=== PATIENT | female | born 1990 | race Caucasian/White ===

== ENCOUNTER → 2017-09-19 | Outpatient (CLI) | payer OTHER ==
--- NOTE | 2017-09-19 16:38 | RAD ---
Left shoulder, 3 views, 09/19/2017: History: Shoulder pain No fracture or or dislocation is identified. No significant arthritic change is seen. IMPRESSION: No significant left shoulder abnormality is detected.
== END | disposition home or self-care (01) ==
LOC: RAD 14:57
PROVIDERS: ATTEND Family Medicine
DX: M25.512 Pain in left shoulder (principal)
CPT/HCPCS: 73030

== ENCOUNTER → 2017-10-23 | Outpatient (CLI) | payer OTHER ==
[2017-10-03 07:00] VITALS: BP 97/64
--- NOTE | 2017-10-23 11:52 | RAD ---
Examination: MRI of the left shoulder without contrast HISTORY: History of left shoulder pain COMPARISON: None available TECHNIQUE: Multiplanar, multisequence MR imaging of the left shoulder performed without contrast. FINDINGS: The long head of the biceps tendon within the bicipital groove. The attachment of the long biceps tendon to the superior labral anchor grossly appears intact. The attachment of the subscapularis tendon grossly appears intact. The attachment of the supraspinatus tendon grossly appears intact. Mild increased signal identified at the attachment of the infraspinatus tendon likely mild tendinosis. There is increased T2 signal identified at the attachment of the teres minor tendon could be subtle partial tear. However the majority of the tendon appears intact. The visualized labrum grossly appears unremarkable. The muscle bulk grossly appears unremarkable. There is mild obscuration of fat in the rotator interval. The visualized acromioclavicular joint, glenohumeral joint grossly appears unremarkable,. IMPRESSION: 1. Nonspecific mild increased T2 signal identified at the attachment of the teres minor tendon to the humerus, question subtle partial tear. Majority of the tendon is intact. 2. Mild tendinosis of the intraspinous tendon. 3. There is mild obscuration of fat in the rotator interval. Correlate for adhesive capsulitis. Electronically signed by: Jarret Rojas MD (10/23/2017 11:49 AM) [place] [id number]
== END | disposition home or self-care (01) ==
LOC: MRI 09:46
PROVIDERS: ATTEND Family Medicine
DX: G56.92 Unspecified mononeuropathy of left upper limb (principal); M25.512 Pain in left shoulder
CPT/HCPCS: 73221

== ENCOUNTER → 2018-06-02 | Outpatient (CLI) | payer OTHER | END | disposition home or self-care (01) | LOC: ECHO 10:20 | DX: R00.2 Palpitations (principal) | CPT/HCPCS: 93306 ==

== ENCOUNTER 2019-11-05 14:51 | Emergency (ER) | payer OTHER ==
[~2019-11-05] VITALS: Ht 162.6 cm; Wt 62.6 kg
[2019-11-05] MEDS ORDERED: diphenhydrAMINE 50 MG/ML VIAL IVP ONE (16:00)
[2019-11-05] MEDS ORDERED: KETOROLAC 30 MG/ML VIAL. IVP ONE (16:00)
[2019-11-05] MEDS ORDERED: PROCHLORPERAZINE 10 MG/2 ML VIAL. IV ONE (16:00)
[2019-11-05 16:07] LABS: BILIRUBIN,URINE NEGATIVE (NEG); CLARITY,URINE CLEAR; COLOR,URINE YELLOW; NITRITE,URINE NEGATIVE (NEG); PROTEIN,URINE NEGATIVE (NEG-TRACE)
[2019-11-05 16:11] LABS: BACTERIA,URINE MANY /HPF (0-FEW); SQUAMOUS EPITHELIAL CELL,UR MANY /LPF
[2019-11-05 16:12] LABS: RBC,URINE 0 /HPF (0-2)
--- NOTE | 2019-11-05 16:24 | PHYS DOC ---
Past Medical History Past Medical History: Other Additional Past Medical Histor: R MASTITIS Past Surgical History: Other Additional Past Surgical Histo: laser vein surgery Alcohol Use: Occasionally Drug Use: None Adult General Chief Complaint Chief Complaint: HEADACHE HPI HPI Patient is a 29 year old female who presents with a CT scan on Saturday and she turned around and try has been accidentally hit her in the both tripped and fell she hit the back of her head on the cement. She states after that she was nauseous and had lightheadedness and dizziness. She states that she's not sure if she lost consciousness but if she didn't was only for seconds. States all this has resolved except her headache. She has a frontal lobe headache that goes from the temporal the temporal. States she is also sore in the back of her head. 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 States she has not had any confusion and coworkers and stated that she is acting seen. She states that she was seeing spots but has not seen spots today. She states once yesterday she saw spots but it subsided very quickly. She rates her pain a 5 out of 10. She states that she took Imitrex yesterday 50 mg, ibuprofen, Excedrin and Tylenol. She last took Tylenol this morning at 11:00 and it was 1000 mg. She is not taking any blood thinners. Review of Systems Review of Systems Neurologic: headache, denies focal weakness or sensory changes [] All other systems were reviewed and found to be within normal limits, except as documented in this note. Current Medications Current Medications Current Medications Medications (Trade) Dose Ordered Sig/Dmitriy Start Time Stop Time Status Last Admin Dose Admin Diphenhydramine HCl (Benadryl) 25 mg 1X ONCE 11/05/19 16:00 11/05/19 16:09 DC 11/05/19 16:39 25 MG Ketorolac Tromethamine (Toradol 30mg Vial) 30 mg 1X ONCE 11/05/19 16:00 11/05/19 16:15 DC 11/05/19 16:38 30 MG Prochlorperazine Edisylate (Compazine) 10 mg 1X ONCE 11/05/19 16:00 11/05/19 16:09 DC 11/05/19 16:39 10 MG Allergies Allergies Allergies Coded Allergies Type Severity Reaction Last Updated Verified Penicillins Allergy Intermediate 10/02/17 Yes clindamycin Adverse Reaction Intermediate N/V 11/19/17 Yes vancomycin Adverse Reaction Intermediate 11/19/17 Yes Physical Exam Physical Exam Constitutional: Well developed, well nourished, no acute distress, non-toxic appearance. [] HENT: Normocephalic, atraumatic, bilateral external ears normal, oropharynx moist, no oral exudates, nose normal. Tenderness to back of the head. [] Eyes: PERRLA, EOMI, conjunctiva normal, no discharge. [] Neck: Normal range of motion, no tenderness, supple, no stridor. [] Cardiovascular:Heart rate regular rhythm, no murmur [] Lungs & Thorax: Bilateral breath sounds clear to auscultation [] Abdomen: Bowel sounds normal, soft, no tenderness, no masses, no pulsatile masses. [] Skin: Warm, dry, no erythema, no rash. [] Back: No tenderness, no CVA tenderness. [] Extremities: No tenderness, no cyanosis, no clubbing, ROM intact, no edema. [] Neurologic: Alert and oriented X 3, normal motor function, normal sensory function, no focal deficits noted. [] Psychologic: Affect normal, judgement normal, mood normal. [] Current Patient Data Vital Signs Vital Signs Date Time Temp Pulse Resp B/P (MAP) Pulse Ox O2 Delivery O2 Flow Rate FiO2 11/05/19 15:15 97.9 86 16 129/90 (103) 100 Room Air 97.9 Lab Values Laboratory Tests Test 11/05/19 15:17 Urine Collection Type Unknown Urine Color Yellow Urine Clarity Clear Urine pH 6.0 Urine Specific Jbphh 1.025 Urine Protein Negative mg/dL (NEG-TRACE) Urine Glucose (UA) Negative mg/dL (NEG) Urine Ketones (Stick) Negative mg/dL (NEG) Urine Blood Negative (NEG) Urine Nitrite Negative (NEG) Urine Bilirubin Negative (NEG) Urine Urobilinogen Dipstick 1.0 mg/dL (0.2 mg/dL) Urine Leukocyte Esterase Small (NEG) Urine RBC 0 /HPF (0-2) Urine WBC 11-20 /HPF (0-4) Urine Squamous Epithelial Cells Many /LPF Urine Bacteria Many /HPF (0-FEW) Urine Mucus Marked /LPF Urine Test Negative (NEG) EKG EKG [] Radiology/Procedures Radiology/Procedures [] Impressions: [facility] [address] [place] [address] IMAGING REPORT Signed PATIENT: IRAM BRIGGS ACCOUNT: [id number] : 1990 LOCATION: ER AGE: 29 SEX: F EXAM STATUS: REG ER ORD. PHYSICIAN: ALISIA CAPPS APRN REASON: fall, head injury PROCEDURE: CT HEAD AND CERVICAL SPINE WO CT head without contrast: Reason for examination: Fell with injury. Axial images were obtained through the brain. No contrast was administered. Reconstruction was performed in sagittal and coronal planes. Ventricular systems are symmetric and not dilated. No midline shift is seen. There is no evidence of intracranial hemorrhage, infarct, mass or edema. No abnormalities of seen at the orbits. The paranasal sinuses show some mucosal disease bilaterally in the ethmoid air cells. Remaining paranasal sinuses are clear. Mastoid air cells are clear. No acute abnormality seen at the skull. IMPRESSION: No acute intracranial abnormality evident. Mucosal disease bilaterally in the ethmoid air cells. CT cervical spine without contrast: Helical images were obtained through the cervical spine from skull base through the thoracic apices. Reconstruction was performed in sagittal and coronal planes. No contrast was administered. C1 ring is intact. The odontoid process appears to be intact and normally centered between the lateral masses of C1. The cervical vertebral bodies are normally aligned anteriorly and posteriorly. No acute fracture or subluxation is seen. Posterior elements are intact. The intervertebral discs are maintained. Prevertebral soft tissues are normal. There is no spinal stenosis. Muscular bundles show no abnormalities. IMPRESSION: No acute abnormality evident in the cervical spine. Exposure: One or more of the following individualized dose reduction techniques were utilized for this examination: 1. Automated exposure control 2. Adjustment of the mA and/or kV according to patient size 3. Use of iterative reconstruction technique. Electronically signed by: Ivette Medrano MD (11/05/2019 5:14 PM) [facility] DICTATED and SIGNED BY: IVETTE MEDRANO MD DATE: 11/05/19 3464 Course & Med Decision Making Course & Med Decision Making Tenderness to the mid back of her head. No abrasion or bruising or bumps felt. No nasal palpation to the neck or her back. There is no bruising to her back or neck. No bruising to the face. Full range of motion of the neck. PERRLA. Denies any visual changes, nausea, vomiting, diarrhea, fever, neck stiffness, joint pain, other injuries to her body, abdominal pain, numbness or tingling, chest pain, shortness of air. She has not had any syncopal episodes. Alert and oriented. Speaks in full clear sentences. Ambulatory with a steady gait. Skin pink warm and dry. Moves all extremities equally. Lungs are clear to auscultation all lobes. Vital signs within normal limits. Patient states she is eating and drinking without patients. Patient states she is feeling better after medications given. States her headache is at a 2 or 3. Patient states she does not want anything stronger than ibuprofen she will just take ibuprofen at home. She'll follow primary care provider. Dragon Disclaimer Dragon Disclaimer This electronic medical record was generated, in whole or in part, using a voice recognition dictation system. Departure Departure Impression: Primary Impression: Headache Additional Impression: Head injury Disposition: HOME, SELF-CARE Condition: STABLE Referrals: ESTHELA GALAVIZ MD (PCP) Patient Instructions: Concussion-SportsMed, Head Injury, Adult Additional Instructions: Follow-up with primary care provider. Take 800 mg ibuprofen every 8 hours and he can also add in Tylenol if needed. Rest as much as possible. Scripts Ibuprofen (IBUPROFEN) 800 Mg Tablet 800 MG PO PRN Q8HRS PRN for PAIN, #20 TAB Prov: ALISIA CAPPS APRN 11/05/19 Problem Qualifiers Primary Impression: Headache Headache type: unspecified Headache chronicity pattern: acute headache Intractability: not intractable Qualified Codes: R51 - Headache Additional Impression: Head injury Encounter type: initial encounter Qualified Codes: S09.90XA - Unspecified injury of head, initial encounter ALISIA CAPPS [employer] Nov 05, 2019 16:24
[2019-11-05 16:37] LABS: U PREG PATIENT NEGATIVE (NEG)
--- NOTE | 2019-11-05 17:17 | RAD ---
CT head without contrast: Reason for examination: Fell with injury. Axial images were obtained through the brain. No contrast was administered. Reconstruction was performed in sagittal and coronal planes. Ventricular systems are symmetric and not dilated. No midline shift is seen. There is no evidence of intracranial hemorrhage, infarct, mass or edema. No abnormalities of seen at the orbits. The paranasal sinuses show some mucosal disease bilaterally in the ethmoid air cells. Remaining paranasal sinuses are clear. Mastoid air cells are clear. No acute abnormality seen at the skull. IMPRESSION: No acute intracranial abnormality evident. Mucosal disease bilaterally in the ethmoid air cells. CT cervical spine without contrast: Helical images were obtained through the cervical spine from skull base through the thoracic apices. Reconstruction was performed in sagittal and coronal planes. No contrast was administered. C1 ring is intact. The odontoid process appears to be intact and normally centered between the lateral masses of C1. The cervical vertebral bodies are normally aligned anteriorly and posteriorly. No acute fracture or subluxation is seen. Posterior elements are intact. The intervertebral discs are maintained. Prevertebral soft tissues are normal. There is no spinal stenosis. Muscular bundles show no abnormalities. IMPRESSION: No acute abnormality evident in the cervical spine. Exposure: One or more of the following individualized dose reduction techniques were utilized for this examination: 1. Automated exposure control 2. Adjustment of the mA and/or kV according to patient size 3. Use of iterative reconstruction technique. Electronically signed by: Ivette Beatty MD (11/05/2019 5:14 PM) [facility]
[2019-11-05] MEDS ORDERED: IBUP-1060 PO (17:51)
[2019-11-05 18:26] VITALS: BP 113/69
== END 2019-11-05 18:46 | disposition home or self-care (01) ==
LOC: ER 14:51
DX: S09.90XA Unspecified injury of head, initial encounter (principal); R42 Dizziness and giddiness; Z88.0 Allergy status to penicillin; Z88.1 Allergy status to other antibiotic agents; W01.198A Fall on same level from slipping, tripping and stumbling with subsequent striking against other object, initial encounter; Y93.89 Activity, other specified; Y92.89 Other specified places as the place of occurrence of the external cause; Y99.8 Other external cause status
CPT/HCPCS: 70450; 72125; 81001; 81025; 87086; 96374; 96375; 99285; J0780; J1200; J1885

== ENCOUNTER 2020-06-21 04:45 | Emergency (ER) | payer OTHER ==
[~2020-06-21] VITALS: Ht 162.6 cm; Wt 63.0 kg
[~2020-06-21 04:45] MED LIST: IBUP-1060 PO
[2020-06-21 04:50] VITALS: BP 133/94
--- NOTE | 2020-06-21 06:39 | PHYS DOC ---
Past Medical History Past Medical History: Other Additional Past Medical Histor: R MASTITIS Past Surgical History: Other Additional Past Surgical Histo: laser vein surgery Smoking Status: Never Smoker Alcohol Use: Occasionally Drug Use: None General Adult EDM: Chief Complaint: NECK PAIN HPI: HPI: Patient is a 29-year-old female employee of [employer] who presents with ongoing neck problems. She states that she is just been unable to get comfortable and now she starting to get some pain into her left arm. She states she has been taking Valium, gabapentin and Percocet without much relief of her symptoms. She has had steroid injections in her neck and completed a course of steroids. She does not recall any specific trauma to the area. [] Review of Systems: Review of Systems: Constitutional: Denies fever or chills. [] Eyes: Denies change in visual acuity. [] HENT: Denies nasal congestion or sore throat. [] Respiratory: Denies cough or shortness of breath. [] Cardiovascular: Denies chest pain or edema. [] GI: Denies abdominal pain, nausea, vomiting, bloody stools or diarrhea. [] : Denies dysuria. [] Musculoskeletal: Per HPI [] Integument: Denies rash. [] Neurologic: Denies headache, focal weakness or sensory changes. [] Endocrine: Denies polyuria or polydipsia. [] Lymphatic: Denies swollen glands. [] Psychiatric: Denies depression or anxiety. [] Heart Score: Risk Factors: Risk Factors: DM, Current or recent (<one month) smoker, HTN, HLP, family history of CAD, obesity. Risk Scores: Score 0 - 3: 2.5% MACE over next 6 weeks - Discharge Home Score 4 - 6: 20.3% MACE over next 6 weeks - Admit for Clinical Observation Score 7 - 10: 72.7% MACE over next 6 weeks - Early Invasive Strategies Current Medications: Current Medications Medications (Trade) Dose Ordered Sig/Dmitriy Start Time Stop Time Status Last Admin Dose Admin Ketorolac Tromethamine (Toradol Im) 60 mg 1X ONCE 06/21/20 07:00 06/21/20 07:01 Orphenadrine Citrate (Norflex) 60 mg 1X ONCE 06/21/20 07:00 06/21/20 07:01 Allergies: Allergies: Allergies Coded Allergies Type Severity Reaction Last Updated Verified Penicillins Allergy Intermediate 10/02/17 Yes clindamycin Adverse Reaction Intermediate N/V 11/19/17 Yes vancomycin Adverse Reaction Intermediate 11/19/17 Yes Physical Exam: PE: Constitutional: Well developed, well nourished, mild to moderate distress, non- toxic appearance. [] HENT: Normocephalic, atraumatic, bilateral external ears normal, oropharynx moist, no oral exudates, nose normal. [] Eyes: PERRLA, EOMI, conjunctiva normal, no discharge. [] Neck: There is no increased pain with axial compression or side bending right or left some increased pain with rotation to the right there is no midline vertebral tenderness she does have some paraspinal muscle spasm left greater than right [] [] Skin: Warm, dry, no erythema, no rash. [] Back: . No midline tenderness no paraspinal muscle spasm [] Extremities: No tenderness, no cyanosis, no clubbing, ROM intact, no edema. [] Neurologic: Alert and oriented X 3, normal motor function, normal sensory function, no focal deficits noted. [] Psychologic: Anxious l. [] EKG: EKG: [] Radiology/Procedures: Radiology/Procedures: [] Course & Med Decision Making: Course & Med Decision Making Pertinent Labs and Imaging studies reviewed. (See chart for details) [ED course: Evaluation reveals a 29-year-old female with a cervical radiculopathy. I spoke with Dr. Stanley this morning and let him know that I thought an MRI as an outpatient was the next best step. He agreed and stated that he would get this scheduled through their office. I informed the patient that she needed to call and remind the office to get it scheduled to soon as possible. Patient was also given Toradol and Norflex during her stay in the department.] Dragon Disclaimer: Dragon Disclaimer: This electronic medical record was generated, in whole or in part, using a voice recognition dictation system. Departure Departure Impression: Primary Impression: Cervical radiculopathy Disposition: 01 HOME, SELF-CARE Condition: STABLE Referrals: ESTHELA STANLEY MD (PCP) Patient Instructions: Cervical Radiculopathy Additional Instructions: I talked with Dr. Stanley this morning and let him know that you would need an outpatient MRI scan of your neck. He asked that she call their office this morning after 8 to remind them to get it scheduled. Return to the emergency department with any new or concerning symptoms Justicifation of Admission Dx: Justifications for Admission: Justification of Admission Dx: No ROSA THOMAS DO Jun 21, 2020 06:38
[2020-06-21] MEDS ORDERED: ORPHENADRINE CITRATE 60 MG/2 ML VIAL. IM ONE (07:00)
[2020-06-21] MEDS ORDERED: KETOROLAC 60 MG/2 ML VIAL. IM ONE (07:00)
== END 2020-06-21 07:00 | disposition home or self-care (01) ==
LOC: ER 04:45
DX: M54.12 Radiculopathy, cervical region (principal); Z88.0 Allergy status to penicillin; Z88.1 Allergy status to other antibiotic agents
CPT/HCPCS: 96372; 99284; J1885; J2360

== ENCOUNTER → 2020-06-22 | Outpatient (CLI) | payer OTHER ==
[2020-06-21 04:50] VITALS: BP 133/94
--- NOTE | 2020-06-22 12:38 | KCIC ---
EXAM: Cervical spine MRI without contrast. HISTORY: Cervical radiculopathy. TECHNIQUE: Multiplanar, multisequence magnetic resonance imaging of the cervical spine was performed without contrast. COMPARISON: None. FINDINGS: There is no significant listhesis. The vertebral bodies are normal in height. There is no suspicious osseous lesion. No cervical spinal cord lesion is seen. There is a tiny mucous retention cyst within the sphenoid sinus. The posterior fossa is unremarkable. At C2-C3, there is no stenosis. At C3-C4, there is a minimal disc bulge and endplate remodeling. There is no stenosis. At C4-C5, there is no stenosis. At C5-C6, there is a minimal posterior central disc protrusion. There is no stenosis. At C6-C7, there is a shallow right foraminal to extra foraminal disc protrusion and annular tear. There is minimal right foraminal stenosis. IMPRESSION: 1. Mild degenerative changes involving the cervical spine, described in detail above. 2. No acute finding or cervical spinal cord lesion. Electronically signed by: Lissa Hatfield MD (06/22/2020 12:36 PM) [facility]
== END | disposition home or self-care (01) ==
LOC: KCIC MRI 09:54
PROVIDERS: ATTEND Family Medicine
DX: M47.22 Other spondylosis with radiculopathy, cervical region (principal)
CPT/HCPCS: 72141

== ENCOUNTER 2020-08-01 16:20 | Emergency (ER) | payer OTHER ==
[~2020-08-01] VITALS: Ht 162.6 cm; Wt 64.0 kg
[2020-08-01] MEDS ORDERED: ONDANSETRON PF 4 MG/2 ML VIAL. ONE (16:48)
[2020-08-01] MEDS ORDERED: IV NORMAL SALINE 1000ML BAG 1,000 ML IV ONE (17:00)
[2020-08-01] MEDS ORDERED: ONDANSETRON PF 4 MG/2 ML VIAL. IVP ONE (17:00)
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
[2020-08-01] MEDS ORDERED: IOHEXOL 300 MG/ML 100ML VIAL. IV ONE (17:30)
[2020-08-01] MEDS ORDERED: CONTRAST GIVEN. MC PRN (17:30)
[2020-08-01] MEDS ORDERED: DIPH,PERTUSS(ACELL),TET VAC/PF 0.5 ML SYRINGE. VAX IM ONE (17:30)
--- NOTE | 2020-08-01 17:50 | RAD ---
EXAM: CT Chest, Abdomen, and Pelvis with IV contrast INDICATION: Reason: crush injury / Spl. Instructions: omni 300 inj 75 mls / History: TECHNIQUE: Multi-detector row CT images were acquired from the thoracic inlet through the ischial tuberosities with the use of IV contrast. Sagittal and coronal images were acquired from the transaxial data. All CT scans performed at this facility utilize dose optimization techniques as appropriate to the exam, including the following: Automated exposure control and adjustment of the mA and/or KV according to patient size (this includes techniques or standardized protocols for targeted exams where dose is indication/reason for exam). IV CONTRAST: Administered ORAL CONTRAST: Not administered COMPARISON: None FINDINGS: CHEST: CARDIOVASCULAR: Unremarkable MEDIASTINUM & RICKY: No adenopathy or masses. LUNGS: No pulmonary infiltrate, nodule, or other focal abnormality. PLEURAL SPACE: No pleural effusions or pneumothorax. OSSEOUS & SOFT TISSUE: Unremarkable ABDOMEN/PELVIS: LIVER: Unremarkable BILIARY SYSTEM: Gallbladder is unremarkable. Bile ducts are not dilated. PANCREAS: Unremarkable SPLEEN: Unremarkable ADRENALS: Unremarkable KIDNEYS & URETERS: Unremarkable BLADDER: Unremarkable REPRODUCTIVE ORGANS: Unremarkable GASTROINTESTINAL: The stomach, small bowel, and colon are unremarkable. The appendix is normal. MESENTERY/PERITONEUM/RETROPERITONEUM: Unremarkable VASCULAR: Unremarkable LYMPH NODES: No adenopathy OSSEOUS & SOFT TISSUES: Unremarkable IMPRESSION: No acute traumatic findings on CT of the chest, abdomen, and pelvis with IV contrast. Discussed with Dr. Tatum Brandt by telephone at 5:45 PM on 08/01/2020 Electronically signed by: Jair Peña MD (08/01/2020 5:47 PM) [id number]
[2020-08-01 18:00] VITALS: BP 113/69
[2020-08-01] MEDS ORDERED: OXYC1TAB15 PO (18:03)
[2020-08-01] MEDS ORDERED: METH-38 PO (18:03)
[2020-08-01] MEDS ORDERED: HYDROcodone/APAP 5/325MG 1 TAB TABLET PO ONE (18:15)
[2020-08-01] MEDS ORDERED: HYDROcodone/APAP 5/325MG 1 TAB TABLET ONE (18:19)
== END 2020-08-01 18:30 | disposition home or self-care (01) ==
LOC: ER 16:20
DX: S30.811A Abrasion of abdominal wall, initial encounter (principal); R07.89 Other chest pain; R11.0 Nausea; F41.9 Anxiety disorder, unspecified; F32.9 Major depressive disorder, single episode, unspecified; Z98.890 Other specified postprocedural states; Z88.0 Allergy status to penicillin; Z88.1 Allergy status to other antibiotic agents; W18.39XA Other fall on same level, initial encounter; Y93.39 Activity, other involving climbing, rappelling and jumping off; Y92.89 Other specified places as the place of occurrence of the external cause; Y99.8 Other external cause status
CPT/HCPCS: 71260; 74177; 81025; 90471; 90715; 96361; 96374; 99285; J2405; J7030; Q9967

== ENCOUNTER 2020-08-09 05:49 | Emergency (ER) | payer OTHER ==
[~2020-08-09] VITALS: Ht 162.6 cm; Wt 63.6 kg
[~2020-08-09 05:49] MED LIST changes: +METH-38 PO; +OXYC1TAB15 PO
[2020-08-09] MEDS ORDERED: IV NORMAL SALINE 1000ML BAG 1,000 ML IV ONE (06:45)
[2020-08-09] MEDS ORDERED: ONDANSETRON PF 4 MG/2 ML VIAL. IVP ONE (06:45)
[2020-08-09 07:04] LABS: BASO % 0 % (0-3); EOS # 0.3 x10^3/uL (0.0-0.7); EOS % 5 % (0-3); HEMATOCRIT 36.7 % (36.0-47.0); LYMPH # 1.5 x10^3/uL (1.0-4.8); LYMPH % 27 % (24-48); MEAN CORPUSCULAR HEMOGLOBIN 32 pg (25-35); MEAN CORPUSCULAR HGB CONC 35 g/dL (31-37); MEAN CORPUSCULAR VOLUME 89 fL (79-100); MONO # 0.4 x10^3/uL (0.0-1.1); MONO % 7 % (0-9); NEUT # 3.3 x10^3/uL (1.8-7.7); NEUT % 61 % (31-73); PLATELET COUNT 266 x10^3/uL (140-400); RED BLOOD COUNT 4.13 x10^6/uL (3.50-5.40); RED CELL DISTRIBUTION WIDTH 12.3 % (11.5-14.5); WHITE BLOOD COUNT 5.5 x10^3/uL (4.0-11.0)
[2020-08-09 07:07] LABS: BILIRUBIN,URINE SMALL (NEG); CLARITY,URINE CLEAR; COLOR,URINE YELLOW; NITRITE,URINE NEGATIVE (NEG); PH,URINE 5.5 (<5.0-8.0); PROTEIN,URINE NEGATIVE (NEG-TRACE)
[2020-08-09 07:16] LABS: BACTERIA,URINE FEW /HPF (0-FEW); RBC,URINE 0 /HPF (0-2)
[2020-08-09 07:17] LABS: HYALINE CASTS, URINE OCCASIONAL /HPF
[2020-08-09 07:23] LABS: CALCIUM 8.8 mg/dL (8.5-10.1); CREATININE 0.8 mg/dL (0.6-1.0); GFR 84.2; POTASSIUM 3.8 mmol/L (3.5-5.1)
[2020-08-09 07:37] LABS: ALBUMIN 3.6 g/dL (3.4-5.0); ALBUMIN/GLOBULIN RATIO 0.9 (1.0-1.7); TOTAL BILIRUBIN 0.3 mg/dL (0.2-1.0); TOTAL PROTEIN 7.4 g/dL (6.4-8.2)
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
[2020-08-09] MEDS ORDERED: IOHEXOL 300 MG/ML 100ML VIAL. IV ONE (07:45)
[2020-08-09] MEDS ORDERED: METOCLOPRAMIDE HCL 10 MG/2 ML VIAL. IVP ONE (07:45)
--- NOTE | 2020-08-09 08:47 | RAD ---
CT CHEST ABD PELVIS W/CONTRAST History: Trauma. Pain. Technique: CT of the chest, abdomen and pelvis were performed with intravenous contrast. Coronal and sagittal reconstructions were performed. Exposure: One or more of the following individualized dose reduction techniques were utilized for this examination: 1. Automated exposure control 2. Adjustment of the mA and/or kV according to patient size 3. Use of iterative reconstruction technique. Comparison: August 01, 2020 Findings: Chest: No pathologic lymphadenopathy. No aortic injury. No consolidation or pleural effusion. No pneumothorax. Mild left lower lobe linear atelectasis. Abdomen and pelvis: The liver, spleen, adrenal glands, pancreas and gallbladder are unremarkable. Unremarkable appearance of the kidneys. No hydronephrosis. Punctate foci of gas within the urinary bladder. Normal PACS. No evidence of bowel obstruction. No pathologic lymphadenopathy. No ascites. Bones: Acute left lateral fifth, sixth and seventh rib fractures. Possible left anterior third and fifth rib fractures. Impression: Chest CT: 1. Acute left lateral and fifth, sixth and seventh rib fractures. Possible left anterior third and fourth rib fractures. Abdomen and pelvis CT: 1. Punctate foci of gas within the urinary bladder. Recommend correlation for recent instrumentation. 2. Otherwise, no acute abdominal or pelvic pathology. Electronically signed by: Anthony Driver DO (08/09/2020 8:43 AM) [id number]
[2020-08-09 09:02] VITALS: BP 115/73
[2020-08-09] MEDS ORDERED: ONDA4TAB7 PO (09:07)
== END 2020-08-09 09:40 | disposition home or self-care (01) ==
LOC: ER 05:49
DX: S22.32XA Fracture of one rib, left side, initial encounter for closed fracture (principal); R10.12 Left upper quadrant pain; R11.2 Nausea with vomiting, unspecified; Z88.0 Allergy status to penicillin; Z88.1 Allergy status to other antibiotic agents; W22.8XXA Striking against or struck by other objects, initial encounter; Y93.39 Activity, other involving climbing, rappelling and jumping off; Y92.488 Other paved roadways as the place of occurrence of the external cause; Y99.8 Other external cause status
CPT/HCPCS: 36415; 71260; 74177; 80053; 81001; 81025; 82150; 82550; 83690; 83735; 85025; 96361; 96374; 96375; 99285; J2405; J2765; J7030; Q9967

== ENCOUNTER → 2020-12-15 | Outpatient (CLI) | payer OTHER ==
[~2020-12-15] MED LIST changes: +ALPR0.25 PO; +CHOL500021 PO; +HYDR-2765 PO; +LEVO1TAB7 PO; +MULT-245 PO; +ONDA4TAB7 PO
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
== END | disposition home or self-care (01) ==
LOC: PNCL 10:14
PROVIDERS: ATTEND Anesthesiology
DX: R07.9 Chest pain, unspecified (principal); R07.81 Pleurodynia; F41.9 Anxiety disorder, unspecified; M19.90 Unspecified osteoarthritis, unspecified site; Z79.899 Other long term (current) drug therapy; Z98.890 Other specified postprocedural states; Z88.0 Allergy status to penicillin; Z88.1 Allergy status to other antibiotic agents; Z88.8 Allergy status to other drugs, medicaments and biological substances
CPT/HCPCS: 99214; G0463

== ENCOUNTER → 2020-12-29 | Outpatient (CLI) | payer OTHER ==
[~2020-12-29] MED LIST changes: +BUPIVACAINE MPF 0.5% 30 ML VIAL. ONE; +methylPREDNISolone ACETATE 80 MG/ML VIAL. ONE
--- NOTE | 2020-12-29 10:41 | PDOC ---
Progress Note - Pain Clinic Date of Service: DOS: DATE: 12/29/20 TIME: 10:36 Diagnosis: Dx: Xiphoidalgia M 94.9 History or Present Illness: HPI: 30-year-old female returns follow-up status post initial evaluation preauthorization for small joint injection sternal xiphoid joint. Patient reports still significant pain at this joint and the xiphoid process after injury August 01, 2020. Patient reports still some significant pain in this region as well as in the left thoracic cage laterally from previous fractured ribs. Patient rates her pain a 6 on scale 10 is worse over the past week 3-4 on average 1 its least is a 4 today. Patient ports is dull and tight burning and stabbing at times constant with activity worse with working standing bending deep breaths flexion and extension of the torso. Patient reports still difficulty sleeping generally not awaken her from sleep when she gets comfortable however. Patient reports no new motor or sensory deficits or other complaints. Physical Exam: VS: Blood pressure is 124/82 pulse 81 respirations 18 temperature 97.4 F height is 5 feet 4 his weight 137 pounds PE: PHYSICAL EXAMINATION: GENERAL: The patient is awake, alert, oriented, appropriate, very pleasant demeanor HEENT: Shows normocephalic, atraumatic. Extraocular movements are intact and symmetrical. Oral cavity: Mucous membranes moist and pink. NECK: Shows anterior throat supple without palpable lymphadenopathy noted. Swallow reflex symmetrical. CHEST: Shows normal on inspection. Breath sounds are clear bilaterally, no rales or rhonchi. Anterior chest shows significant tenderness at the sternal xiphoid junction with even moderate palpation. No obvious displacement is identified with palpation but significant pain without significant radiation. Patient also has significant tenderness of the lateral aspect of the rib cage in the mid axillary line as well as slightly posterior to this on the left side only. HEART: Shows S1, S2 clear. No murmurs auscultated. ABDOMEN: Soft, nontender, nondistended, flat. No palpable organomegaly is noted. BACK: Shows spine grossly in the midline. Normal-appearing cervical lordotic curvature. There is slightly increased thoracic kyphosis, some minor flattening of the lumbar lordotic curvature. EXTREMITIES: Lower extremities show deep tendon reflexes 2+ in the patellar and tendo calcaneus tendons. Motor exam is 5 on a scale of 5 with right dorsiflexion, extension, quadriceps and hamstring flexion and 5/5 on the left. Peripheral pulses are 1+ posterior tibial. No peripheral edema is noted bilaterally. SKIN: Shows warm and dry, good turgor. No edema. No sores, rashes or bruising throughout. Procedure: Procedure: Options were discussed with the patient. Patient's old chart reviews her current medication regimen updated current review of systems updated today as well. We will proceed with a sternal xiphoid joint injections today with fluoroscopic guidance. Risk were discussed including but not limited to bleeding infection possibility of intravascular injection sequelae spread to local anesthetic and numbness side effects steroid medication exposure fluoroscopy and portals rating pain control. Patient understands wished to proceed. Patient return to clinic in approximate 2 weeks for follow-up was counseled as to return appointment activity level and side effects to be aware of. Medication Injected: Med Injected: Under sterile prep and drape patient in supine position using C-arm fluoroscopic guidance patient's sternal xiphoid joint was identified and using 25-gauge needle was entered into the sternal xiphoid joint without difficulty. 1 cc of contrast was used showed no uptake or washout and good local concentration at the sternal xiphoid joint. At this time 2 cc of 0.5% bupivacaine and 80 mg Depo-Medrol was then injected. Needle was removed and sterile bandage was applied. Patient tolerated procedure well and had no complications. Condition at Discharge: Condition at Discharge: Condition at discharge stable, patient tolerated procedure well had no complicat ions. MARIA NUNEZ MD Dec 29, 2020 10:41
--- NOTE | 2020-12-29 10:42 | PDOC4 ---
PROCEDURE Procedure Patient was consented for sternal xiphoid joint injection. Risk were discussed including but not limited to bleeding infection possibility of intravascular injection sequelae spread local anesthetic and numbness side effects steroid medication exposure fluoroscopy and portals regarding pain control. Patient understands wished to proceed. Under sterile prep and drape patient in supine position using C-arm fluoroscopic guidance patient's sternal xiphoid joint was identified and using 25-gauge needle was entered into the sternal xiphoid joint without difficulty. 1 cc of contrast was used showed no uptake or washout and good local concentration at the sternal xiphoid joint. At this time 2 cc of 0.5% bupivacaine and 80 mg Depo-Medrol was then injected. Needle was removed and sterile bandage was applied. Patient tolerated procedure well and had no complications. MARIA NUNEZ MD Dec 29, 2020 10:42
== END | disposition home or self-care (01) ==
LOC: PNCL 10:08
PROVIDERS: ATTEND Anesthesiology
DX: M94.9 Disorder of cartilage, unspecified (principal); Z87.440 Personal history of urinary (tract) infections; Z79.899 Other long term (current) drug therapy; Z98.890 Other specified postprocedural states; Z72.89 Other problems related to lifestyle; Z88.8 Allergy status to other drugs, medicaments and biological substances; Z88.0 Allergy status to penicillin; Z88.1 Allergy status to other antibiotic agents
CPT/HCPCS: 20600; 77002; J1040; J3490